=== PATIENT | male | born 1945 | race Caucasian/White ===

== ENCOUNTER 2020-03-19 07:08 | Emergency (ER) | payer MEDICARE, BC ==
--- NOTE | 2020-03-19 07:41 | EDM.PDOC ---
ED HPI GENERAL MEDICAL PROBLEM - General Chief Complaint: Bite:Animal, Insect Stated Complaint: TICK BITE Time Seen by Provider: 03/19/20 07:30 Source of Information: Reports: Patient, Old Records History Limitations: Reports: No Limitations - History of Present Illness INITIAL COMMENTS - FREE TEXT/NARRATIVE: 74 yo male noticed a deer tick attached to his L hip area when he took his shower this morning. He pulled it off and brought it along to the ER this morning. Onset: Today Onset Date: 03/19/20 Duration: Hour(s): (unsure, was not there yesterday morning when he last showered) Location: Reports: Pelvis (L lateral hip area) Quality: Reports: Dull Severity: Mild Improves with: Reports: None Worsens with: Reports: None Context: Reports: Other (tick bite) Associated Symptoms: Reports: No Other Symptoms Treatments [employer]: Reports: Other (see below) (removed tick) - Related Data Allergies Allergy/AdvReac Type Severity Reaction Status Date / Time No Known Allergies Allergy Verified 03/19/20 07:27 Home Meds: Home Meds Freshcoat 3 drop TOP DAILY 04/30/14 [History] Mineral Oil/Petrolatum,White [Refresh Lacri-Lube] 7 gm OP DAILY 04/30/14 [ History] Doxycycline Hyclate 200 mg PO ONETIME #1 tablet. 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 Cardiovascular History: Reports: High Cholesterol, Hypertension Other Cardiovascular History: enlarged aorta Respiratory History: Reports: Sleep Apnea Other Respiratory History: c-pap Gastrointestinal History: Reports: None Genitourinary History: Reports: None Musculoskeletal History: Reports: None Neurological History: Reports: None Psychiatric History: Reports: None Endocrine/Metabolic History: Reports: None Hematologic History: Reports: None Immunologic History: Reports: None Oncologic (Cancer) History: Reports: None Dermatologic History: Reports: None - Past Surgical History Musculoskeletal Surgical History: Reports: Knee Replacement Dermatological Surgical History: Reports: Skin Biopsy Social & Family History - Tobacco Use Smoking Status *Q: Former Smoker Used Tobacco, but Quit: Yes Month/Year Tobacco Last Used: 16 years ago - Caffeine Use Caffeine Use: Reports: Coffee - Recreational Drug Use Recreational Drug Use: No ED ROS GENERAL - Review of Systems Review Of Systems: See Below Constitutional: Reports: No Symptoms Skin: Reports: Erythema (at bite site) Neurological: Reports: No Symptoms ED EXAM, ANIMAL BITE - Physical Exam Exam: See Below Exam Limited By: No Limitations General Appearance: Alert, WD/WN, No Apparent Distress Skin Exam: Warm/Dry, Other (reddened area at bite site. ) Course - Vital Signs Last Recorded V/S: Last Vital Signs Temp 36.2 C 03/19/20 07:22 Pulse 72 03/19/20 07:22 Resp 20 03/19/20 07:22 BP 141/81 H 03/19/20 07:22 Pulse Ox 99 03/19/20 07:22 Departure - Departure Time of Disposition: 07:39 Disposition: Home, Self-Care 01 Condition: Good Clinical Impression: Dermacentor andersoni tick bite Qualifiers: Encounter type: initial encounter Qualified Code(s): W57.XXXA - Bitten or stung by nonvenomous insect and other nonvenomous arthropods, initial encounter - Discharge Information *PRESCRIPTION DRUG MONITORING PROGRAM REVIEWED*: Not Applicable *COPY OF PRESCRIPTION DRUG MONITORING REPORT IN PATIENT [place]: Not Applicable Prescriptions: Doxycycline Hyclate 200 mg PO ONETIME #1 tablet.dr Referrals: Calvin Bob MD [Primary Care Provider] - Additional Instructions: Take doxycycline one dose. No dairy for 2 hrs before or after the dose or anything that contains calcium. Keep wound clean with soap and water or alcohol or peroxide. Recheck as needed. Sepsis Event Note (ED) - Evaluation Sepsis Screening Result: No Definite Risk - Focused Exam Vital Signs: Vital Signs Temp Pulse Resp BP Pulse Ox 03/19/20 07:22 36.2 C 72 20 141/81 H 99
== END 2020-03-19 07:47 | disposition home or self-care (01) ==
LOC: JP.ED 07:08
DX: S70.262A Insect bite (nonvenomous), left hip, initial encounter (principal); I10 Essential (primary) hypertension; E78.00 Pure hypercholesterolemia, unspecified; Z87.891 Personal history of nicotine dependence; Z79.899 Other long term (current) drug therapy; W57.XXXA Bitten or stung by nonvenomous insect and other nonvenomous arthropods, initial encounter
CPT/HCPCS: 99282; 99283